=== PATIENT | female | born 1985 | race Caucasian/White ===

== ENCOUNTER 2017-08-26 22:00 | Emergency (ER) | payer OTHER | END 2017-08-27 01:10 | disposition home or self-care (01) | LOC: D.ER 22:00 | DX: M54.16 Radiculopathy, lumbar region (principal); F17.200 Nicotine dependence, unspecified, uncomplicated ==

== ENCOUNTER 2018-07-10 22:48 | Emergency (ER) | payer OTHER ==
[~2018-07-10] VITALS: Ht 165.1 cm; Wt 63.6 kg
[2018-07-10 23:06] VITALS: Ht 165.1 cm; Wt 63.6 kg
[2018-07-11] MEDS ORDERED: VISTARIL25 MG PO (01:21)
[2018-07-11 01:28] VITALS: BP 138/78
== END 2018-07-11 01:27 | disposition home or self-care (01) ==
LOC: D.ER 22:48
DX: T78.40XA Allergy, unspecified, initial encounter (principal); X58.XXXA Exposure to other specified factors, initial encounter; I10 Essential (primary) hypertension; F17.200 Nicotine dependence, unspecified, uncomplicated

== ENCOUNTER 2019-04-29 08:50 | Emergency (ER) | payer MEDICAID ==
[~2019-04-29] VITALS: Ht 165.1 cm; Wt 61.4 kg
[~2019-04-29 08:50] MED LIST: VISTARIL25 MG PO
[2019-04-29 09:02] VITALS: Ht 165.1 cm; Wt 61.4 kg
[2019-04-29] MEDS ORDERED: TYLENOL W/CODEI1 TAB PO (10:42)
[2019-04-29 11:00] VITALS: BP 150/97
== END 2019-04-29 11:00 | disposition home or self-care (01) ==
LOC: D.ER 08:50
DX: J06.9 Acute upper respiratory infection, unspecified (principal)

== ENCOUNTER 2019-07-02 21:08 | Emergency (ER) | payer OTHER ==
[~2019-07-02] VITALS: Ht 165.1 cm; Wt 59.1 kg
[~2019-07-02 21:08] MED LIST changes: +TYLENOL W/CODEI1 TAB PO
[2019-07-02 21:12] VITALS: Ht 165.1 cm; Wt 59.1 kg
[2019-07-02] MEDS ORDERED: TOPROL XL25 MG PO (21:14)
[2019-07-02 21:57] LABS: BASOPHILS 0.1 % (0-2); EOSINOPHILS 0.1 % (0-7); HEMATOCRIT 39.4 % (36.0-48.0); HEMOGLOBIN 13.3 g/dL (12-16); IMMATURE GRANULOCYTES 0.4 % (0-5); LYMPHOCYTES 8.7 % (15-50); MCH 30.5 pg (26.0-34.0); MCHC 33.8 g/dL (31.0-37.0); MCV 90.4 fL (80.0-100.0); MEAN PLATELET VOLUME 10.2 fL (7.4-10.4); MONOCYTES 9.1 % (2-11); NEUTROPHILS 81.6 % (40-80); RBC 4.36 10x6/uL (4.00-5.40); RDW 13.4 % (11.5-14.5)
[2019-07-02 21:58] LABS: PLATELET COUNT 278 10x3/uL (130-400)
[2019-07-02 22:05] LABS: CALC OSMOLALITY 264 mosm/kg (275-300); CALCIUM 8.7 mg/dL (8.5-10.1); CARBON DIOXIDE 26.4 mmol/L (21.0-32.0); CHLORIDE - SERUM 99 mmol/L (98-107); CREATININE - SERUM 0.7 mg/dL (0.6-1.3); GLUCOSE 121 mg/dL (74-106); POTASSIUM - SERUM 3.7 mmol/L (3.5-5.1); SODIUM 133 mmol/L (136-145); UREA NITROGEN 8 mg/dL (7-18); eGFR NON AFRICAN AMERICAN > 90 mL/min (90-120)
[2019-07-02 22:20] LABS: HCG URINE NEGATIVE (NEGATIVE)
[2019-07-02 22:21] LABS: APPEARANCE CLEAR (CLEAR); BILIRUBIN NEGATIVE (NEGATIVE); COLOR YELLOW (YELLOW); GLUCOSE NEGATIVE (NEGATIVE); KETONE NEGATIVE (NEGATIVE); NITRITE NEGATIVE (NEGATIVE); PROTEIN TRACE mg/dL (NEGATIVE); UROBILINOGEN NORMAL (NORMAL)
[2019-07-02 22:23] LABS: BACTERIA FEW /hpf (NEGATIVE); EPITHELIAL CELLS 0-5 /hpf (0-5); MUCUS <1+ /lpf (NONE SEEN); RED CELLS - URINE 0-5 /hpf (0-5); WHITE CELLS - URINE 0-5 /hpf (NEGATIVE)
[2019-07-02] MEDS ORDERED: LEVAQUIN750 MG PO (22:46)
[2019-07-02] MEDS ORDERED: TESSALON PERLE100 MG PO (22:46)
[2019-07-02] MEDS ORDERED: ALBUTEROL SULF8.5 GM INH (22:46)
[2019-07-03 00:35] VITALS: BP 118/66
== END 2019-07-03 00:36 | disposition home or self-care (01) ==
LOC: D.ER 21:08
PROVIDERS: Emergency Medicine
DX: J18.1 Lobar pneumonia, unspecified organism (principal); Z72.0 Tobacco use; R52 Pain, unspecified; J02.9 Acute pharyngitis, unspecified

== ENCOUNTER 2019-12-26 03:49 | Emergency (ER) | payer OTHER ==
[~2019-12-26] VITALS: Ht 165.1 cm; Wt 61.4 kg
[~2019-12-26 03:49] MED LIST changes: +ALBUTEROL SULF8.5 GM INH; +LEVAQUIN750 MG PO; +TESSALON PERLE100 MG PO; +TOPROL XL25 MG PO
[2019-12-26 03:53] VITALS: Ht 165.1 cm; Wt 61.4 kg
[2019-12-26 05:10] LABS: HEMATOCRIT 35.8 % (36.0-48.0); HEMOGLOBIN 12.1 g/dL (12-16); LYMPHOCYTES 28.4 % (15-50); MCH 30.6 pg (26.0-34.0); MCHC 33.8 g/dL (31.0-37.0); MCV 90.4 fL (80.0-100.0); MEAN PLATELET VOLUME 10.4 fL (7.4-10.4); NEUTROPHILS 60.7 % (40-80); RBC 3.96 10x6/uL (4.00-5.40); RDW 12.2 % (11.5-14.5); WBC 7.5 10x3/uL (4.8-10.8)
[2019-12-26 05:13] LABS: PLATELET COUNT 191 10x3/uL (130-400)
[2019-12-26 05:16] LABS: CALC OSMOLALITY 271 mosm/kg (275-300); CALCIUM 7.9 mg/dL (8.5-10.1); CARBON DIOXIDE 23.4 mmol/L (21.0-32.0); CHLORIDE - SERUM 105 mmol/L (98-107); CREATININE - SERUM 0.7 mg/dL (0.6-1.3); POTASSIUM - SERUM 3.3 mmol/L (3.5-5.1); SODIUM 138 mmol/L (136-145); UREA NITROGEN 7 mg/dL (7-18); eGFR NON AFRICAN AMERICAN > 90 mL/min (90-120)
[2019-12-26 05:17] LABS: GLUCOSE 65 mg/dL (74-106)
[2019-12-26 05:36] LABS: ALKALINE PHOSPHATASE 85 U/L (30-120); ALT (SGPT) 32 U/L (10-68); BILIRUBIN - TOTAL 0.19 mg/dL (0.2-1.3); FERRITIN 12 ng/mL (3-244); PROTEIN - SERUM 6.4 g/dL (6.4-8.2)
[2019-12-26 06:44] LABS: BACTERIA MANY /hpf (NEGATIVE); BILIRUBIN NEGATIVE (NEGATIVE); EPITHELIAL CELLS 0-5 /hpf (0-5); GLUCOSE NEGATIVE (NEGATIVE); KETONE NEGATIVE (NEGATIVE); NITRITE POSITIVE (NEGATIVE); RED CELLS - URINE 0-5 /hpf (0-5); SPECIFIC GRAVITY 1.015 (1.005-1.020); UROBILINOGEN NORMAL (NORMAL); WHITE CELLS - URINE 0-5 /hpf (NEGATIVE)
[2019-12-26] MEDS ORDERED: MACROBID100 MG PO (06:50)
[2019-12-26 07:49] VITALS: BP 137/70
== END 2019-12-26 08:58 | disposition home or self-care (01) ==
LOC: D.ER 03:49
PROVIDERS: Emergency Medicine
DX: E16.2 Hypoglycemia, unspecified (principal); N30.00 Acute cystitis without hematuria; E87.6 Hypokalemia; Z20.828 Contact with and (suspected) exposure to other viral communicable diseases; R06.02 Shortness of breath; R07.89 Other chest pain; R05 Cough; E03.9 Hypothyroidism, unspecified; R50.9 Fever, unspecified

== ENCOUNTER 2020-10-16 21:51 | Inpatient (IN) | payer OTHER ==
[~2020-10-16] VITALS: Ht 165.1 cm; Wt 61.4 kg
--- NOTE | ~2020-10-16 | EC ---
PATIENT:NELSON PAULINO DATE OF SERVICE: 10/17/20 SEX: F MEDICAL RECORD: [id number] DATE OF : [birth year] LOCATION:[facility] AGE OF PATIENT: 35 ADMISSION DATE: 10/17/20 REFERRING PHYSICIAN: INTERPRETING PHYSICIAN: JESSICA VILLAR MD ECHOCARDIOGRAM REPORT ECHO CHARGES 4 ECHO COMPLETE Date: 10/17/20 CLINICAL DIAGNOSIS: R/O VEG; HX:DRUG USE ECHOCARDIOGRAPHIC MEASUREMENTS (adult normal given) AC root (d.<3.7cm) 2.7 cm LV Septum d (<1.2 cm> 0.8 cm Valve Excursion 1.7 cm LV Septum (systole) 1.0 cm Left Atria (s.<4.0cm> 2.8 cm LVPW d(<1.2cm) 0.9 cm RV (d.<2.3cm) 2.5 cm LVPW (sytole) 1.0 cm LV diastole(<5.6CM) 5.0 cm MV E-F(>70mm/sec) cm LV systole 3.7 cm LVOT Diameter 1.6 cm MV exc.(>10mm) 1.4 cm Est.ejection fraction (50-75%) % DOPPLER: LVIT cm/sec A 106 cm/sec E 77 cm/sec LA cm/sec RVSP 32 mmHg LVOT 87 cm/sec AOP1/2T m/s Asc. Ao 112 cm/sec RVOT 66 cm/sec RA cm/sec PA 86 cm/sec AV Gradient Peak 5.0 mmHg AV Mean 3.1 mmHg AV Area 1.4 cm MV Gradient Peak 5.9 mmHg MV Mean 2.4 mmHg MV Area cm COMMENTS: Project Controls Scheduler: Mracelle KEENAN Machine Operators: 3 Dr. Whitney TAPE# Pericardial Effusion N DATE OF SERVICE: Adequate 2D, color flow imaging, spectral Doppler, and M-Mode. FINDINGS: No LVH. LV internal dimensions are normal. Wall motion is normal. EF is greater than equal to 55%. Aortic valve is tricuspid. No evidence of stenosis by Doppler interrogation. Left atrium is normal. Mitral valve shows no prolapse. Trace MR. Right side is grossly normal. Trace TR. No evidence of vegetation in all 4 cardiac valves. ECHOCARDIOGRAM REPORT [id number] NELSON PAULINO TRANSINT:[id number] Voice Confirmation ID: [id number] DOCUMENT ID: [id number] JESSICA VILLAR MD CC: [id number] DICTATION DATE: 10/18/20 1636 ALTERATIONS TAILOR: 10/18/20 1711 DIS IN 10/18/20 [place] [id number] [place] [id number]
[~2020-10-16 21:51] MED LIST changes: +MACROBID100 MG PO
[2020-10-16 22:35] VITALS: BP 140/85
[2020-10-16 22:37] LABS: HEMATOCRIT 35.2 % (36.0-48.0); HEMOGLOBIN 11.7 g/dL (12-16); LYMPHOCYTE ABS# 0.38 10x3/uL (1.18-3.74); MCH 28.7 pg (26.0-34.0); MCHC 33.2 g/dL (31.0-37.0); MCV 86.5 fL (80.0-100.0); MEAN PLATELET VOLUME 10.8 fL (7.4-10.4); NEUTROPHIL ABS# 1.15 10x3/uL (1.56-6.13); RBC 4.07 10x6/uL (4.00-5.40); RDW 12.7 % (11.5-14.5)
[2020-10-16 22:44] LABS: CALC OSMOLALITY 265 mosm/kg (275-300); CALCIUM 7.8 mg/dL (8.5-10.1); CARBON DIOXIDE 29.4 mmol/L (21.0-32.0); CHLORIDE - SERUM 100 mmol/L (98-107); CREATININE - SERUM 0.8 mg/dL (0.6-1.3); GLUCOSE 96 mg/dL (74-106); POTASSIUM - SERUM 3.6 mmol/L (3.5-5.1); SODIUM 134 mmol/L (136-145); UREA NITROGEN 8 mg/dL (7-18); eGFR NON AFRICAN AMERICAN 87 mL/min (90-120)
[2020-10-16 22:52] LABS: PLATELET COUNT 135 10x3/uL (130-400); WBC 1.8 10x3/uL (4.8-10.8)
[2020-10-16 22:57] LABS: LYMPHOCYTES 16 % (15-50); MONOCYTES 4 % (2-11); NEUTROPHILS 80 % (40-80)
[2020-10-16 22:58] LABS: ALBUMIN 2.9 g/dL (3.4-5.0); ALKALINE PHOSPHATASE 314 U/L (30-120); ALT (SGPT) 724 U/L (10-68); BILIRUBIN - TOTAL 0.66 mg/dL (0.2-1.3); C-REACTIVE PROTEIN 5.2 mg/dL (0.0-0.9); LIPASE 117 U/L (73-393); PLATELET ESTIMATE NORMAL; PROTEIN - SERUM 7.1 g/dL (6.4-8.2); THYROID STIMULATING HORMONE 0.13 uIU/mL (0.36-3.74)
--- NOTE | 2020-10-16 23:56 | NUR ---
PT IV 20G WAS REMOVED IN CT, WHEN PT ARRIVED BACK T ROOM RIGHT ARM SWOLLEN, REDNESS, RAISED HIVE AREA. MD AWARE AND ORDERS WERE PLACED, PT HAD MEDS PER OCT.
[2020-10-17] VITALS (9 sets, daily range): BP systolic 101–148; BP diastolic 51–90; Ht 165.1 cm; Wt 61.4 kg
[2020-10-17 00:14] LABS: HCG URINE NEGATIVE (NEGATIVE)
[2020-10-17 00:17] LABS: UDS - AMPHET POSITIVE QUAL (NEGATIVE); UDS - BARB NEGATIVE QUAL (NEGATIVE); UDS - BENZO NEGATIVE QUAL (NEGATIVE); UDS - COCAINE NEGATIVE QUAL (NEGATIVE); UDS - OPIATE NEGATIVE QUAL (NEGATIVE); UDS - PCP NEGATIVE QUAL (NEGATIVE); UDS - THC NEGATIVE QUAL (NEGATIVE)
[2020-10-17 00:24] LABS: NITRITE POSITIVE (NEGATIVE)
[2020-10-17 00:25] LABS: BILIRUBIN NEGATIVE (NEGATIVE); KETONE NEGATIVE (NEGATIVE); UROBILINOGEN NORMAL mg/dL (< 2)
[2020-10-17 00:26] LABS: BACTERIA MANY HPF (NONE SEEN); SQUAMOUS EPITHELIAL 0-5 HPF (0-4); WHITE CELLS - URINE 0-5 HPF (0-4)
--- NOTE | 2020-10-17 00:51 | NUR ---
REPORT GIVEN TO ABRAM GAMBOA
--- NOTE | 2020-10-17 05:03 | NUR ---
REPORT RECEIVED, WILL CONT POC. PT A&O. NO S/S OF DISTRESS OBSERVED. RR EVEN AND UNLABORED ON RA. PT UP AD [place], NO S/S OF WEAKNESS NOTED. L FA IV PATENT. BED LOCKED AND LOWERED, CL IN REACH. ASSESSMENT COMPLETED AT THIS TIME. WILL CONT TO MONITOR.
[2020-10-17 06:01] LABS: APTT 38.4 SECONDS (22.8-39.4); INR 1.27 (0.85-1.17); PROTIME 14.7 SECONDS (11.6-15.0)
[2020-10-17 06:07] LABS: % SATURATION 5 % (15-55); IRON 16 ug/dl (35-150); TOTAL IRON BIND CAPACITY 309 ug/dl (260-445); UNSAT IRON BIND CAPACITY 293 ug/dl (150-375)
[2020-10-17 06:41] LABS: ALBUMIN 2.9 g/dL (3.4-5.0); ALKALINE PHOSPHATASE 310 U/L (30-120); ALT (SGPT) 667 U/L (10-68); BILIRUBIN - TOTAL 0.82 mg/dL (0.2-1.3); CALCIUM 7.7 mg/dL (8.5-10.1); CARBON DIOXIDE 23.7 mmol/L (21.0-32.0); CHLORIDE - SERUM 102 mmol/L (98-107); CREATININE - SERUM 0.8 mg/dL (0.6-1.3); FERRITIN 69 ng/mL (3-244); GLUCOSE 141 mg/dL (74-106); LDH 427 U/L (81-234); PHOSPHOROUS 2.4 mg/dL (2.5-4.9); POTASSIUM - SERUM 3.8 mmol/L (3.5-5.1); PRO BNP 123 pg/mL (0-125); PROTEIN - SERUM 6.9 g/dL (6.4-8.2); SODIUM 134 mmol/L (136-145); eGFR NON AFRICAN AMERICAN 87 mL/min (90-120)
[2020-10-17 06:43] LABS: CALC OSMOLALITY 266 mosm/kg (275-300); UREA NITROGEN 4 mg/dL (7-18)
--- NOTE | 2020-10-17 08:00 | NUR ---
ASSESSMENT PER FLOW SHEET. PATIENT IS WITHOUT DISTRESS.ISOLATION MAINTAINED.CALL LIGHT IN REACH
[2020-10-17 08:07] LABS: BASOPHILS 0.7 % (0-2); EOSINOPHILS 0 % (0-7); HEMATOCRIT 34.7 % (36.0-48.0); HEMOGLOBIN 11.4 g/dL (12-16); LYMPHOCYTE ABS# 0.39 10x3/uL (1.18-3.74); LYMPHOCYTES 26.7 % (15-50); MCHC 32.9 g/dL (31.0-37.0); MCV 88.3 fL (80.0-100.0); MONOCYTES 4.8 % (2-11); NEUTROPHIL ABS# 0.99 10x3/uL (1.56-6.13); NEUTROPHILS 67.8 % (40-80); PLATELET COUNT 136 10x3/uL (130-400); RBC 3.93 10x6/uL (4.00-5.40); RETIC 0.63 % (0.45-2.28)
[2020-10-17 08:22] LABS: WBC 1.5 10x3/uL (4.8-10.8)
--- NOTE | 2020-10-17 12:01 | NUR ---
PATIENT REPORTS SHE WAS ON HER PERIOD YESTERDAY.LAST TAMPON USE YESTERDAY. TAMPON REMOVED AT THAT TIME,10/16/202099.
--- NOTE | 2020-10-17 12:05 | NUR ---
PATIENT INSTRUCTED NO TAMPON USE WHILE IN HOSPITAL. I TOLD HER WE WOULD PROVIDE PADS.
--- NOTE | 2020-10-17 21:00 | NUR ---
PT STATES PAIN 6/10 IN RIGHT ARM. GAVE MORPHINE ORDERED. DENIES OTHER NEEDS AT THIS TIME. CL IN REACH
[2020-10-18] VITALS: BP 103/61
--- NOTE | 2020-10-18 00:30 | NUR ---
PT TOOK SHOWER AT THIS TIME. LINENS CHANGED
--- NOTE | 2020-10-18 02:30 | NUR ---
PT IV TAKEN OUT PRIOR TO BEING ESCORTED TO ER WITH CATHETER INTACT
--- NOTE | 2020-10-18 02:30 | NUR ---
THIS NURSE WAS WALKING DOWN HALLWAY WHEN PT WALKED OUT OF ROOM FULLY DRESSED WITH ALL HER PERSONAL BELONGINGS. FOLLOWED PT ALL THE WAY TO [facility] BY OUTPATIENT HALLWAY CALLING PT NAME. PT STOPPED, THIS NURSE ASKED PT WHERE SHE WAS GOING. PT STATES SHE HAD TO LEAVE AND WAS NEEDING TO GET HOME TO HER DAUGHTER. TOLD PT SHE COULD NOT JUST LEAVE, THIS NURSE NEEDED TO NOTIFY DOCTOR, TAKE IV OUT, AND SHE NEEDED TO SIGN AMA FORM. PT STATES SHE DID NOT REALIZE ALL THAT HAD TO BE DONE FOR HER TO LEAVE THAT SHE FELT BETTER AFTER ANTIBIOTICS AND THAT SHE NEEDS TO GET HOME TO HER DAUGHTER. PT CAME BACK TO [facility]. CHARGE NURSE NOTIFIED. HOUSE SUPVERVISOR NOTIFIED. CALLED AND SPOKE WITH YODIT TEJADA APN. THIS NURSE AND CHARGE NURSE REPEATED TO PT SEVERAL TIMES THE RISKS OF LEAVING AT THIS TIME WITHOUT FINISHING ANTIBIOTICS, NOT FOLLOWING UP WITH WOUND CARE ON HER ARM, THAT IT IS POSSIBLE FOR HER TO DEVELOP SEPSIS AND EVEN RISK OF IF SHE LEAVES. PT VERBALIZED UNDERSTANDING SEVERAL TIMES STATING HOW HER MOTHER WAS WATCHING HER DAUGHTER RIGHT NOW AND HER MOTHER IS "UNFIT" TO CARE FOR HER AND SHE NEEDED TO GET HOME TO HER. EXPLAINED TO PT IF SHE WERE TO FROM INFECTION THEN SHE WOULD NOT BE THERE TO CARE FOR HER DAUGHTER. PT STATES SEVERAL TIMES SHE FEELS BETTER FROM THE ANTIBIOTICS AND SHE WOULD CALL DR SERRATO OFFICE THIS AM TO GET AN APPT. TOLD PT SHE NEEDED TO COME BACK TO ER TODAY TO BE SEEN BY SURGERY WELL, HAVE THE DRESSING CHANGED ON HER ARM, CONTINUE HER ANTIBIOTICS. PT STATES SHE WILL "DEFINITELY FOLLOW UP." PT SIGNED AMA FORM. WALKED PT TO ER WHERE SHE HAD A FRIEND WAITING TO PICK HER UP
[2020-10-18 08:14] LABS: HEPATITIS C ANTIBODY <0.1 S/CO RAT (0.0-0.9)
== END 2020-10-18 02:40 | disposition left against medical advice (07) | DRG 872 ==
LOC: D.ER 21:51 → D.MS 10-17 03:45 → D.EDHOLD 10-17 03:45 → D.MS 10-17 04:13
PROVIDERS: Family Medicine; Internal Medicine Hematology & Oncology; ADMIT Family Medicine; ATTEND Family Medicine
PROC: 0H9DXZZ Drainage of Right Lower Arm Skin, External Approach (ICD-10-PCS; principal; 2020-10-17)
DX: A41.9 Sepsis, unspecified organism (principal); N39.0 Urinary tract infection, site not specified; L03.113 Cellulitis of right upper limb; F15.20 Other stimulant dependence, uncomplicated; D64.9 Anemia, unspecified; E05.90 Thyrotoxicosis, unspecified without thyrotoxic crisis or storm; I10 Essential (primary) hypertension; F17.200 Nicotine dependence, unspecified, uncomplicated; D70.9 Neutropenia, unspecified; R74.01 Elevation of levels of liver transaminase levels

== ENCOUNTER 2020-10-20 19:42 | Emergency (ER) | payer OTHER ==
[2020-10-17 12:57] VITALS: Ht 165.1 cm; Wt 63.5 kg
[~2020-10-20] VITALS: Ht 165.1 cm; Wt 63.5 kg
[2020-10-20 19:55] VITALS: BP 115/71
[2020-10-20 20:14] LABS: BASOPHILS 0.6 % (0-2); HEMATOCRIT 36.2 % (36.0-48.0); HEMOGLOBIN 12.2 g/dL (12-16); IMMATURE GRANULOCYTES 0.3 % (0-5); LYMPHOCYTE ABS# 0.77 10x3/uL (1.18-3.74); MCH 28.6 pg (26.0-34.0); MCHC 33.7 g/dL (31.0-37.0); NEUTROPHIL ABS# 1.85 10x3/uL (1.56-6.13); NEUTROPHILS 60.1 % (40-80); PLATELET COUNT 151 10x3/uL (130-400); RBC 4.26 10x6/uL (4.00-5.40); RDW 12.8 % (11.5-14.5); WBC 3.1 10x3/uL (4.8-10.8)
[2020-10-20 20:26] LABS: CALC OSMOLALITY 263 mosm/kg (275-300); CALCIUM 7.7 mg/dL (8.5-10.1); CARBON DIOXIDE 27.6 mmol/L (21.0-32.0); CHLORIDE - SERUM 99 mmol/L (98-107); CREATININE - SERUM 0.6 mg/dL (0.6-1.3); GLUCOSE 108 mg/dL (74-106); POTASSIUM - SERUM 3.5 mmol/L (3.5-5.1); SODIUM 133 mmol/L (136-145); UREA NITROGEN 4 mg/dL (7-18); eGFR NON AFRICAN AMERICAN > 90 mL/min (90-120)
[2020-10-20 20:32] LABS: ALBUMIN 2.7 g/dL (3.4-5.0); ALKALINE PHOSPHATASE 288 U/L (30-120); ALT (SGPT) 700 U/L (10-68); AMYLASE - SERUM 35 U/L (25-115); BILIRUBIN - TOTAL 1.44 mg/dL (0.2-1.3); LIPASE 128 U/L (73-393); MAGNESIUM - SERUM 2.2 mg/dL (1.8-2.4); PROTEIN - SERUM 6.3 g/dL (6.4-8.2)
[2020-10-20 20:40] LABS: HCG SERUM NEGATIVE (NEGATIVE)
[2020-10-20 21:14] LABS: BILIRUBIN NEGATIVE (NEGATIVE); KETONE NEGATIVE (NEGATIVE); NITRITE NEGATIVE (NEGATIVE); UROBILINOGEN NORMAL mg/dL (< 2)
[2020-10-20 21:26] LABS: UDS - AMPHET POSITIVE QUAL (NEGATIVE); UDS - BARB NEGATIVE QUAL (NEGATIVE); UDS - BENZO POSITIVE QUAL (NEGATIVE); UDS - COCAINE NEGATIVE QUAL (NEGATIVE); UDS - OPIATE POSITIVE QUAL (NEGATIVE); UDS - PCP NEGATIVE QUAL (NEGATIVE); UDS - THC NEGATIVE QUAL (NEGATIVE)
== END 2020-10-20 22:00 | disposition home or self-care (01) ==
LOC: D.ER 19:42
PROVIDERS: Family Medicine
DX: B15.9 Hepatitis A without hepatic coma (principal); F19.10 Other psychoactive substance abuse, uncomplicated; Z98.890 Other specified postprocedural states; I10 Essential (primary) hypertension; Z72.0 Tobacco use